=== PATIENT | female | born 1940 | race Caucasian/White ===

== ENCOUNTER 2024-01-07 15:19 | Inpatient (IN) | payer OTHER ==
[~2024-01-07] VITALS: Ht 157.5 cm; Wt 79.1 kg
[2024-01-07] VITALS (10 sets, daily range): BP systolic 101–146; BP diastolic 59–87; PULSE 68–85; RESP 18–22; TEMP 97–98; O2SAT 94–100
[~2024-01-07 15:19] MED LIST: ALEN70TA74 PO
[2024-01-07 15:52] LABS: Basophils # (auto) 0 10 ^3/uL (0-0.2); Basophils % (auto) 0.3 % (0.0-2.0); Eosinophils # (auto) 0 10 ^3/uL (0-0.8); Eosinophils % (auto) 0.3 % (0.0-7.0); Hematocrit 44.5 % (36.0-46.0); Lymphocytes # (auto) 1.6 10 ^3/uL (0.4-5.4); Lymphocytes % (auto) 18.6 % (10.0-50.0); Mean Corpuscular Hemoglobin 30.1 pg (28.0-32.0); Mean Corpuscular Hgb Conc. 33.7 g/dL (32.0-36.0); Mean Corpuscular Volume 89.5 fL (80.0-100.0); Monocytes # (auto) 0.5 10 ^3/uL (0-1.3); Monocytes % (auto) 5.7 % (0.0-12.0); Neutrophils # (auto) 6.5 10 ^3/uL (1.6-8.6); Neutrophils % (auto) 75.1 % (37.0-80.0); Nucleated Red Blood Cells % 0.1 %; Platelet Count (auto) 230 10^3/uL (140-450); Red Blood Cells 4.97 10^6/uL (4.0-5.20); Red Cell Distribution Width 13.5 % (11.8-14.3); White Blood Cell 8.6 10^3/uL (4.4-10.8)
[2024-01-07 16:05] LABS: Alanine Aminotransferase 14 U/L (7-40); Albumin 4.7 g/dL (3.2-4.8); Alkaline Phosphatase 83 U/L (46-116); Anion Gap 10 (5-15); Aspartate Aminotransferase 20 U/L (13-40); BUN/Creatinine Ratio 15.4 (10.0-20.0); Blood Urea Nitrogen 18 mg/dL (9-23); Carbon Dioxide 28 mmol/L (20-31); Chloride 103 mmol/L (98-107); Potassium 4.2 mmol/L (3.5-5.1); Sodium 141 mmol/L (136-145)
[2024-01-07 16:06] LABS: Bilirubin, Total 0.3 mg/dL (0.2-1.0); Calcium 10.7 mg/dL (8.7-10.4); Glucose 162 mg/dL (74-106); Total Protein 7.3 g/dL (5.7-8.2)
[2024-01-07 16:13] LABS: INR 1.03 (0.9-1.15); Partial Thromboplastin Time 26.2 SEC (24.5-34.5); Prothrombin Time 10.9 sec (9.3-11.8)
--- NOTE | 2024-01-07 16:13 | ED.PDOC ---
History of Present Illness HPI Comments 83F presents to the ER w/ no prior Hx associated to the c/c of CP. Pt reports on going outside near her car and slide her back on the car down to the floor, and as the pt was trying to get up she immediately felt CP. Pt reported the CP to have been tight ache, which was substernal and radiated down the bilateral arms, and bilateral jaws. she currently does not have the chest pain. Pt also notes that she had SOB and CHAHAL during the CP. Pt PCP is Doctor Lanier. PMHx of HTN and Diverticulosis. SHx of Hysterectomy. Social Hx of Tobacco use, but denies alcohol and substance use. Denies chills, fever, N/V/D, or other associated symptom's, modifiers, or recent injuries or sick contact at this time. Chief Complaint: Chest Pain Time Seen by MD: 15:30 Primary Care Provider: DAYA Prieto Notes: Nurses Notes, Medications, Allergies Allergies: Coded Allergies: NO KNOWN ALLERGIES (Unverified , 04/07/14) Information Source: Patient Mode of Arrival: Ambulatory Severity: Moderate Timing: Minutes Duration: Since onset, Minutes Prehospital treatment: None Past Medical History PAST MEDICAL HISTORY: HTN Past Medical History (Other): Diverticulosis Surgical History: Hysterectomy CODING COMPLIANCE AUDITOR History: No Pertinent CODING COMPLIANCE AUDITOR History Family History Family History: Reviewed,noncontributory to illness, Unknown Social History Smoker: Cigarettes Alcohol: Denies ETOH Use Drugs: Denies Drug Use Lives In: Home Constitutional: denies: chills, diaphoresis, fatigue, fever, malaise, sweats, weakness, others EENTM: denies: blurred vision, double vision, ear bleeding, ear discharge, ear drainage, ear pain, ear ringing, eye pain, eye redness, hearing loss, mouth pain, mouth swelling, nasal discharge, nose bleeding, nose congestion, nose pain, photophobia, tearing, throat pain, throat swelling, voice changes, others Respiratory: reports: shortness of breath; denies: cough, hemoptysis, orthopnea, SOB at rest, SOB with excertion, stridor, wheezing, others Cardiovascular: reports: chest pain, left arm pain (/RIght arm); denies: dizzy spells, diaphoresis, Dyspnea on exertion, edema, irregular heart beat, lightheadedness, palpitations, PND, syncope, others Gastrointestinal: denies: abdomen distended, abdominal pain, blood streaked bow els, constipated, diarrhea, dysphagia, difficulty swallowing, hematemesis, melena, nausea, poor appetite, poor fluid intake, rectal bleeding, rectal pain, vomiting, others Genitourinary: denies: abnormal vagina bleeding, burning, dyspareunia, dysuria, flank pain, frequency, hematuria, incontinence, pain, , vagina discharge, urgency, others Neurological: reports: headache; denies: dizziness, fainting, left sided numbness, left sided weakness, numbness, paresthesia, pre-existing deficit, right sided numbness, right sided weakness, seizure, speech problems, tingling, tremors, weakness, others Musculoskeletal: denies: back pain, gout, joint pain, joint swelling, muscle pain, muscle stiffness, neck pain, others Integumetry: denies: bruises, change in color, change in hair/nails, dryness, laceration, lesions, lumps, rash, wounds, others Allergic/Immunocompromised: denies: Difficulty Healing, Frequent Infections, Hives, Itching, others Hematologic/Lymphatic: denies: anemia, blood clots, easy bleeding, easy bruising, swollen glands, others Endocrine: denies: excessive hunger, excessive sweating, excessive thirst, excessive urination, flushing, intolerance to cold, intolerance to heat, unexplained weight gain, unexplained weight loss, others Psychiatric: denies: anxiety, bipolar disorder, depression, hopeless, panic di sorder, schizophrenia, sleepless, suicidal, others All Other Systems: Reviewed and Negative Physical Exam General Appearance: No Apparent Distress, Normal HEENT: Normal ENT Inspection, Pharynx Normal, TMs Normal Neck: Full Range of Motion, Non-Tender, Normal, Normal Inspection Respiratory: Chest Non-Tender, Lungs Clear, No Accessory Muscle Use, No Respiratory Distress, Normal Breath Sounds Cardiovascular: No Edema, No JVD, No Murmur, No Gallop, Normal Peripheral Pulses, Regular Rate/Rhythm Breast Exam: Deferred Gastrointestinal: No Organomegaly, Non Tender, No Pulsatile Mass, Normal Bowel Sounds, Soft Genitalia: Deferred Pelvic: Deferred Rectal: Deferred Extremities: No calf tenderness, Normal capillary refill, Normal inspection, Normal range of motion, Non-tender, No pedal edema Musculoskeletal : Apperance: Normal Neurologic: Alert, systems development consultant II-XII nml as Tested, No Motor Deficits, Normal Affect, Normal Mood, No Sensory Deficits Cerebellar Function: Normal Reflexes: Normal Skin: Dry, Normal Color, Warm Lymphatic: No Adenopathy Was a procedure done? Was a procedure done?: No EKG EKG : Pulse Rate (adult): 77 [place]: Normal Cardiac Rhythm: NSR Block: None Hypertrophy: None ST: New, Ant, Lat Comments repeat ekg nsr 77. no dynamic changes. persistent st elevations in lateral leads and st depressions in inf leads, but q waves in inf leads repeat EKG #2- nsr 83, no dynamic changes, with same st changes Differential Dx Considerations may include: STEMI, NSTEMI, aortic dissection, PE, unstable angina,ptx, anxiety X-Ray, Labs, Meds, VS Vital Signs Date Time Temp Pulse Resp B/P (MAP) Pulse Ox O2 Delivery O2 Flow Rate FiO2 01/07/24 16:31 83 01/07/24 16:13 85 01/07/24 16:13 83 20 96 Nasal Cannula* 2 28 01/07/24 16:13 96 Nasal Cannula* 2 28 01/07/24 16:13 98.2 79 20 139/96 (110) 97 98.2 01/07/24 15:38 98.0 84 16 169/93 (118) 94 01/07/24 15:26 77 Lab Test 01/07/24 16:42 01/07/24 15:32 Range/Units Troponin I High Sensitivity Pending 3627 *H </=34 ng/L White Blood Count 8.6 4.4-10.8 10^3/uL Red Blood Count 4.97 4.0-5.20 10^6/uL Hemoglobin 15.0 12.2-16.2 g/dL Hematocrit 44.5 36.0-46.0 % Mean Corpuscular Volume 89.5 80.0-100.0 fL Mean Corpuscular Hemoglobin 30.1 28.0-32.0 pg Mean Corpuscular Hemoglobin Concent 33.7 32.0-36.0 g/dL Red Cell Distribution Width 13.5 11.8-14.3 % Platelet Count 230 140-450 10^3/uL Mean Platelet Volume 8.4 6.9-10.8 fL Neutrophils (%) (Auto) 75.1 37.0-80.0 % Lymphocytes (%) (Auto) 18.6 10.0-50.0 % Monocytes (%) (Auto) 5.7 0.0-12.0 % Eosinophils (%) (Auto) 0.3 0.0-7.0 % Basophils (%) (Auto) 0.3 0.0-2.0 % Neutrophils # (Auto) 6.5 1.6-8.6 10 ^3/uL Lymphocytes # (Auto) 1.6 0.4-5.4 10 ^3/uL Monocytes # (Auto) 0.5 0-1.3 10 ^3/uL Eosinophils # (Auto) 0 0-0.8 10 ^3/uL Basophils # (Auto) 0 0-0.2 10 ^3/uL Nucleated Red Blood Cells 0.1 % Prothrombin Time 10.9 9.3-11.8 sec Prothrombin Time INR 1.03 0.9-1.15 Activated Partial Thromboplast Time 26.2 24.5-34.5 SEC Sodium Level 141 136-145 mmol/L Potassium Level 4.2 3.5-5.1 mmol/L Chloride Level 103 98-107 mmol/L Carbon Dioxide Level 28 20-31 mmol/L Anion Gap 10 5-15 Blood Urea Nitrogen 18 9-23 mg/dL Creatinine 1.17 H 0.550-1.02 mg/dL Glomerular Filtration Rate Calc 46 >90 mL/min BUN/Creatinine Ratio 15.4 10.0-20.0 Serum Glucose 162 H 74-106 mg/dL Hemoglobin A1c Pending Calcium Level 10.7 H 8.7-10.4 mg/dL Magnesium Level Pending Total Bilirubin 0.3 0.2-1.0 mg/dL Aspartate Amino Transferase (AST) 20 13-40 U/L Alanine Aminotransferase (ALT) 14 7-40 U/L Alkaline Phosphatase 83 46-116 U/L B-Type Natriuretic Peptide Pending Total Protein 7.3 5.7-8.2 g/dL Albumin 4.7 3.2-4.8 g/dL Triglycerides Level Pending Cholesterol Level Pending LDL Cholesterol Pending HDL Cholesterol Pending Thyroid Stimulating Hormone (TSH) Pending Current Medications Medications (Trade) Dose Ordered Sig/Franklin Route Start Time Stop Time Status Last Admin Aspirin 325 mg ONCE ONCE PO 01/07/24 15:45 01/07/24 15:46 DC 01/07/24 17:04 Heparin Sodium (Porcine) 3,000 units ONCE ONCE IV 01/07/24 16:45 01/07/24 16:46 DC 01/07/24 17:04 Time of 1ST Reevaluation: 16:00 Reevaluation 1ST: Unchanged Time of 2ND Reevaluation: 16:40 Reevaluation 2ND: Improved Patient Education/Counseling: Diagnosis, Treatment, Prognosis, Need For Follow Up Family Education/Counseling: No Family Present Additional Information - I reviewed the following notes from patient's past medical encounters:04/07/14 - The following tests were ordered, and results were reviewed by me: Labs, X- Ray, EKG, CT, PHA - I reviewed and agreed with the following test results read by other provider: X-ray, CT - I discussed treatments and results with medical personnel and Dr Garcia. 1st ekg was immediately sent to Dr Garcia, who felt this is not a STEMI, and pt has a headache, so needs a head ct. i called Dr Garcia back to inform him that pt has jaw pain Dr Shah was consulted and will admit Departure 1 Departure Time of Disposition: 16:42 Impression: Primary Impression: ACS (acute coronary syndrome) Disposition: 09 ADMITTED INPATIENT Admit to: ICU Condition: Serious Critical Care Note Critical Care Time?: Yes (55 min-critical care time only) Critical care comment: due to the likelihood of patients condition suddenly deteriorating, the care requires my highest level of attention, readiness to intervene. my critical care include assessing and reassessing of patient's condition, response to treatments, ordering the appropriate tests, reviewing the results, ordering of treatments, discussing the care with medical personnel and consultants, and formulating a treatment plan, as well a reviewing various medical records. this include at least 50% face-face interaction, and does not include any procedures Stability Stability form required: No Heart Score Heart Score: Heart Score Response (Comments) Value History Highly Suspicious [address]-Deviation 2 Age >65 2 Risk Factors 1 or 2 risk factors 1 Troponin >3 x's Normal limit 2 Total 9 I personally scribed for IFRAH CANNON MD ([email or web address]) on 01/07/24 at 16:13. Electronically submitted by Ramone Salcido ([email or web address]). IFRAH CANNON MD Jan 07, 2024 16:13
--- NOTE | 2024-01-07 16:19 | DVH ---
CLINICAL INFORMATION: 83 years old, Female; HEADACHE. TECHNIQUE: Axial imaging was obtained through the brain without contrast. Coronal and sagittal refor matted images were obtained, reviewed, and stored. Images were reviewed in brain and bone windows. A ll CT scans at this medical facility are performed using dose modulation techniques as appropriate to a performed exam including the following: Automated exposure control was utilized; adjustment of the MA and/or KV according to patient size; and use of iterative reconstruction technique. CTDIvol = 48.95 mGy DLP = 783.55 mGy-cm COMPARISON: None FINDINGS: There is no acute intracranial hemorrhage or extraaxial fluid collection. No mass effect o r midline shift. Scattered areas of hypoattenuation are seen in the periventricular and subcortical w thierno matter, which are nonspecific but most likely sequelae of small vessel ischemic disease. Small c hronic lacunar infarct in the left thalamus. Likely chronic lacunar infarcts in the basal ganglia mushtaq aterally. The ventricles and sulci are within normal limits in size for age. Basal cisterns are paten t. The calvarium is unremarkable. Paranasal sinuses and mastoid air cells are clear. IMPRESSION: 1. No CT evidence of acute intracranial abnormality. 2. Nonacute appearing findings as described above.
--- NOTE | 2024-01-07 16:25 | DVH ---
XY CHEST TWO VIEWS ROUTINE CLINICAL HISTORY: CP COMPARISON: None TECHNIQUE: Frontal and lateral view of the chest was obtained FINDINGS: Lines and Tubes: None Lungs: No focal consolidation. Diffuse interstitial prominence with minimal left basilar opacity. Pleura: No effusion. No pneumothorax. Cardiomediastinal contours: Unremarkable Bones: No acute osseous abnormality. Severe degenerative changes bilateral AC joints. IMPRESSION: Pulmonary vascular congestion with left basilar atelectasis.
[2024-01-07] MEDS ORDERED: MORPHINE SULFATE INJ 2 MG/ml SYRG IV PRN ×3 (16:45→20:00)
[2024-01-07] MEDS ORDERED: NITROGLYCERIN 0.4 MG SL TAB SL PRN ×3 (16:45→20:00)
--- NOTE | 2024-01-07 16:57 | DVHINCON2 ---
CRIS IDAS [facility] 01/07/24 1657: Date Seen: Jan 07, 2024 Referring Physician MD Abril Reason for Consultation NSTEMI History of Present Illness This is a pleasant 83-year-old female who presented to the emergency room with a chief complaint of generalized weakness. The patient complains of progressive generalized weakness associated with jaw pain , mild shortness of breath, a mild CHAHAL, and some chest discomfort radiating to bilateral upper extremities. At time of assessment, the patient was chest pain free. She underwent multiple 12-lead electrocardiograms revealing progressive ST segment changes to anteroseptal leads as well as reciprocal changes to lateral leads. Initial troponin level is >3600 ng/L. Significant medical history includes tobacco use including a smoke history of 9.6 pack-years, osteoporosis, and hysterectomy. Of note, reports familial history for cardiovascular disease including brother with myocardial infarction. Past Medical History Past medical history reviewed. No other significant than mentioned above. Past Surgical History Hysterectomy Family History Family history reviewed. See HPI. Social History See HPI. Denies use of alcohol or illicit drugs. Allergies: Coded Allergies: NO KNOWN ALLERGIES (Unverified , 04/07/14) Home Meds Home medications reviewed. Current Medications Current Medications Medications (Trade) Dose Ordered Sig/Franklin Route PRN Reason Start Time Stop Time Status Last Admin Nitroglycerin (Ntrostat Sublingual) 0.4 mg Q5MINP PRN SL FOR CHEST PAIN 01/07/24 16:45 UNV Morphine Sulfate 2 mg Q30M PRN IV FOR CHEST PAIN 01/07/24 16:45 UNV Metoprolol Tartrate (Lopressor Tablet) 25 mg BID PO 01/07/24 22:00 UNV Aspirin 81 mg DAILY PO 01/08/24 10:00 UNV Atorvastatin Calcium (Lipitor) 40 mg HS PO 01/07/24 22:00 UNV Review of Systems Constitutional: Generalized weakness Ears, Nose, & Throat: No symptom reported Eyes: No symptom reported Neurological: CHAHAL Pulmonary/Respiratory: SOB Cardiovascular: Chest pain, jaw pain Gastrointestinal: No symptom reported Genitourinary: No symptom reported Musculoskeletal: No symptom reported Skin: No symptom reported Psychiatric: No symptom reported Endocrine: No symptom reported Hemotologic/Lymphatic: No symptom reported Vital Signs Vital Signs Date Time Temp Pulse Resp B/P (MAP) Pulse Ox O2 Delivery O2 Flow Rate FiO2 01/07/24 16:31 83 11/30/24 16:13 98.2 20 139/96 (110) 97 98.2 Physical Exam General Appearance: Cooperative. Elder. This. In no acute distress Head Exam: Normal inspection Neck Exam: Normal inspection. Non-tender. Normal alignment Pulmonary/Respiratory: Chest non-tender. Diminished bilateral breath sounds Cardiovascular/Chest: Regular rate and rhythm. S1, S2. Sinus rhythm with progressive ST segment changes to anteroseptal leads and reciprocal lateral changes. Peripheral Pulses: 2+ Radial (R). 2+ Radial (L). 2+ Pedal (R). 2+ Pedal (L) Abdominal Exam: Normal bowel sounds. Soft. Nontender. No hepatospenomegaly. No masses Ankle Exam: Negative ankle edema Lower extremities: Negative lower extremity edema Neuro/Mental Status: A&O x4. Coherent Thoughts/Psych: Normal thought pattern. Appropriate mood and affect. Good judgement and insight Appearance: In no acute distress Skin Exam: Normal inspection. Normal color. Warm. Dry Labs/Diagnostic Data Labs Test 01/07/24 15:32 Range/Units White Blood Count 8.6 4.4-10.8 10^3/uL Red Blood Count 4.97 4.0-5.20 10^6/uL Hemoglobin 15.0 12.2-16.2 g/dL Hematocrit 44.5 36.0-46.0 % Mean Corpuscular Volume 89.5 80.0-100.0 fL Mean Corpuscular Hemoglobin 30.1 28.0-32.0 pg Mean Corpuscular Hemoglobin Concent 33.7 32.0-36.0 g/dL Red Cell Distribution Width 13.5 11.8-14.3 % Platelet Count 230 140-450 10^3/uL Mean Platelet Volume 8.4 6.9-10.8 fL Neutrophils (%) (Auto) 75.1 37.0-80.0 % Lymphocytes (%) (Auto) 18.6 10.0-50.0 % Monocytes (%) (Auto) 5.7 0.0-12.0 % Eosinophils (%) (Auto) 0.3 0.0-7.0 % Basophils (%) (Auto) 0.3 0.0-2.0 % Neutrophils # (Auto) 6.5 1.6-8.6 10 ^3/uL Lymphocytes # (Auto) 1.6 0.4-5.4 10 ^3/uL Monocytes # (Auto) 0.5 0-1.3 10 ^3/uL Eosinophils # (Auto) 0 0-0.8 10 ^3/uL Basophils # (Auto) 0 0-0.2 10 ^3/uL Nucleated Red Blood Cells 0.1 % Prothrombin Time 10.9 9.3-11.8 sec Prothrombin Time INR 1.03 0.9-1.15 Activated Partial Thromboplast Time 26.2 24.5-34.5 SEC Sodium Level 141 136-145 mmol/L Potassium Level 4.2 3.5-5.1 mmol/L Chloride Level 103 98-107 mmol/L Carbon Dioxide Level 28 20-31 mmol/L Anion Gap 10 5-15 Blood Urea Nitrogen 18 9-23 mg/dL Creatinine 1.17 H 0.550-1.02 mg/dL Glomerular Filtration Rate Calc 46 >90 mL/min BUN/Creatinine Ratio 15.4 10.0-20.0 Serum Glucose 162 H 74-106 mg/dL Calcium Level 10.7 H 8.7-10.4 mg/dL Total Bilirubin 0.3 0.2-1.0 mg/dL Aspartate Amino Transferase (AST) 20 13-40 U/L Alanine Aminotransferase (ALT) 14 7-40 U/L Alkaline Phosphatase 83 46-116 U/L Troponin I High Sensitivity 3627 *H </=34 ng/L Total Protein 7.3 5.7-8.2 g/dL Albumin 4.7 3.2-4.8 g/dL Assessment Acute non ST-elevation myocardial infarction Rule out structural heart disease Pertinent family history for cardiovascular disease Nicotine dependence Obesity Plan/Recommendation (Dr. Stapleton) Scheduled for urgent cardiac catheterization and coronary angiogram at fist available with Dr. Stapleton. All risks and benefits of the procedure were discussed with the patient who agrees to proceed with intervention. All questions answered. In the meantime, initiate heparin loading dose. The patient was administered ASA 325 mg upon arrival. Trend troponin levels closely. Monitor ECG changes and notify. We will institute further cardiac evaluation with a transthoracic echocardiogram to rule out structural heart disease. Thank you for allowing us to participate in this patient's care. Ple ase call if you have any questions or concerns. Critical care time: 40 min. This medical document was created using an electronic medical record system with voice recognition software and computerized dictation system. Although this document has been carefully reviewed, there might still be some phonetic and typographical errors. Occasional wrong-word or ``sound-alike substitutions may have occurred due to the inherent limitations of voice recognition software. These areas are purely typographical due to imperfections of the software programs and do not reflect any compromise in the patient's medical care. Please read the chart carefully and recognize, using context, where these substitutions have occurred. Plan discussed with: Patient, Other Date of Service: Jan 07, 2024 Billing Provider: CRIS DIAS Cardiology Common Codes: 77397-[id number] CARE 30-74 MIN ANNA STAPLETNO MD 01/07/24 5076: Allergies: Coded Allergies: NO KNOWN ALLERGIES (Unverified , 04/07/14) Plan/Recommendation pt with nstemi, ?aneurysmal dilatation on ecg, stat echo shows severe chf likely has severe cad recommend [facility] very high risk pt for cv complications given age and acuity of condition Plan discussed with: Other (rn) CRIS DIAS Jan 07, 2024 16:57 ANNA STAPLETON MD Jan 07, 2024 18:36
[2024-01-07] MEDS: ASPirin 325 MG TAB PO ONE (17:04)
[2024-01-07] MEDS: HEPARIN SODIUM (PORCINE) 5000 UNITS/ML 1ML VIAL IV ONE (17:04)
[2024-01-07] MEDS ORDERED: HEPARIN SODIUM (PORCINE) 5000 UNITS/ML 1ML VIAL IV ONE (17:30)
[2024-01-07] MEDS ORDERED: HEPARIN DRIP/D5W 100UNITS/ML 250 ML IV SCH (17:30)
[2024-01-07 17:53] LABS: Magnesium 1.8 mg/dL (1.6-2.6)
--- NOTE | 2024-01-07 18:15 | DVHSR ---
APPROVED REPORT EXAM: LIMITED Two-dimensional and M-mode echocardiogram with Doppler and color Doppler. Blood Pressure: 139/96 mmHg INDICATION NSTEMI RISK FACTORS Height: 5'2", Weight: 158 DIMENSIONS LVDd (3.8-5.7cm)LA (2D)3.5 (1.9-4.0cm)Aortic Root (2.0-3.7cm) EF (%) 25.0 (55-70%)Rt. Atrium3.3 (1.9-4.0cm)Asc. Aorta cm Mitral Valve MitralMitral Stenosis E wave0.75m/sMV Mean GR.mmHg A wave0.94m/sMV Peak GR.mmHg E/A ratio0.82D MVAcm2 DECEL [id number] 1/2 Timems Aortic Valve Aortic ValveAortic Stenosis V11.15m/Calli Mean GR.3mmHg V21.22m/Calli Peak GR.6mmHg LVOT Diameter1.8 (1.8-2.4cm)Doppler AVA2.40cm2 Tricuspid Valve TR Velocity3.15m/s [id number] Other Information Quality : Technically LimitedRhythm : Technically limited study due to body habitus and patient position. Conclusion lvef 30% akinetic apex with anerusymal dilatation mild RV dysfunction left atrium enlaged
[2024-01-07] MEDS: IODIXANOL 320MG/ML 100ML BTL IV ONE (18:21)
[2024-01-07 18:35] LABS: Urine Bacteria FEW /hpf (None Seen); Urine Blood Negative /uL (Negative); Urine Clarity Turbid (Clear); Urine Color Light-Yellow (Yellow); Urine Protein, UAD 2+ (Negative); Urine Specific Gravity 1.024 (1.001-1.035); Urine Urobilinogen Normal (Negative); Urine WBC 16 /hpf (0 - 5)
[2024-01-07] MEDS: ANGIOMAX 250 MG VIAL IV ONE (18:57)
[2024-01-07] MEDS: MIDAZOLAM HCL 2MG/2ML 2ml VIAL (1mg/ml) ONE (18:57)
[2024-01-07] MEDS: SODIUM CHL 0.9% 0 ML ONE (18:57)
[2024-01-07] MEDS: VERAPAMIL 2.5MG/ML INJ 2ML VIAL IV ONE (18:57)
[2024-01-07] MEDS: LIDOCAINE 2%HCL (LOCAL ANESTH.) INJ 20ML MDV ONE (18:57)
[2024-01-07] MEDS: fentaNYL CITRATE 100 MCG/2 ML VL ONE (18:57)
--- NOTE | 2024-01-07 19:35 | DVHOP2 ---
Operative Report Operative Report CARDIAC [facility] PROCEDURE REPORT [place], [place] Date of Service: 01/07/24 Component Lab Tech: Anna Stapleton MD PROCEDURES PERFORMED: Coronary angiogram, left heart catheterization, conscious sedation administration and supervision, less than 15 minutes; fluoroscopy use and interpretation. PREOPERATIVE DIAGNOSES: nstemi, acute chf, stat case POSTOP DIAGNOSIS: same DESCRIPTION OF PROCEDURE: The patient or appropriate family signed informed consent understanding the risks, benefits and alternatives of the procedure, they wished to proceed. The patient was brought to the cardiac medical laboratory technologist in n.p.o. state. The patient was prepped in a sterile fashion. Sedation was used per cardiac cath protocol. I administered 2 mL of 2% lidocaine to the right wrist. With an antegrade front wall puncture. I cannulated the right radial artery and placed a 6-Swiss Glidesheath slender. Next, an intra-arterial spasmolytic was administered. Next, a - 5 Swiss Mer[place] catheter and were used for coronary angiogram and LVEDP measurement and pressure pullback. At the completion of procedure, all guides and wires were removed, and there were no immediate complications. 2000 U of iv heparin given. FINDINGS: RCA: Moderate vessel off the right sinus of Valsalva, there is no severe flow limiting stenosis. mild 30% mid vessel stenosis LEFT MAIN: Moderate size left main, it bifurcates into LAD and circumflex. no severe stenosis CIRCUMFLEX: Moderate caliber vessel coming off the left main with no flow limiting stenosis. LAD: LAD is a moderate caliber vessel coming of the left main. no severe stenosis LVEDP of 24 mmhg CONCLUSIONS: 1. no severe epicardial cad 2. marked LVEDP elevation, acute HF PLAN: Aggressive risk factor modification and medical management for the patient. asa iv lasix 40 mg given start HF therapy ANNA STAPLETON MD Jan 07, 2024 19:35
[2024-01-07] MEDS: FUROSEMIDE 20 MG/2 ML VIAL ONE (19:41)
[2024-01-07] MEDS: HEPARIN SODIUM (PORCINE) 5000 UNITS/ML 1ML VIAL ONE (19:41)
[2024-01-07] MEDS: ATORVASTATIN 20 MG TAB PO SCH (22:38)
[2024-01-07] MEDS: ACETAMINOPHEN 325 MG TAB PO PRN (22:41)
[2024-01-07] MEDS: METOPROLOL TARTRATE 25 MG TAB PO SCH (22:43)
[2024-01-08] VITALS (8 sets, daily range): BP systolic 113–132; BP diastolic 46–70; PULSE 58–81; RESP 13–18; TEMP 97.7–98.2; O2SAT 96–99
--- NOTE | 2024-01-08 00:21 | DVHHP2 ---
Admitting Diagnosis: Chest pain, UTI History of Present Illness History Source: Patient Exam Limitations: No limitations HPI Mrs. Zofia Noyola is an 83 yo female with a history of hypertension who presented with midsternal chest pain radiating to bilateral arms. Patient with troponin levels of 3,627 and 8,525. Patient was evaluated by Cardiology and taken to computer lab assistant for cardiac angiogram. Patient admitted post heart cath procedure. Patient currently denies any chest pain, dyspnea, nausea, vomiting, dysuria, hematuria. Past Medical History Cardiac: HTN Pulmonary: No pertinent Hx Central Nervous System: No pertinent Hx GI: No pertinent Hx Hemotology/Oncology: No pertinent Hx Hepatobiliary: No pertinent Hx Psychiatric: No pertinent Hx Musculoskeletal: No pertinent Hx Rheumotologic: No pertinent Hx Infectious Disease: No peritnent Hx ENT: No pertinent Hx Renal/: No pertinent Hx Endocrine: No pertinent Hx Dermatology: No pertinent Hx Patient Family History: Cardiovascular disease G8 BROTHER Smoker: No Hx (Negative) Alocohol: None Drugs: None Domestic Violence: Neg Review of Systems Constitutional: No symptom reported Ears, Nose, & Throat: No symptom reported Eyes: No symptom reported Pulmonary/Respiratory: No symptom reported Cardiovascular: No symptom reported Gastrointestinal: No symptom reported Genitourinary: No symptom reported Musculoskeletal: No symptom reported Skin: No symptom reported Psychiatric: No symptom reported Endocrine: No symptom reported Hemotologic/Lymphatic: No symptom reported H&P Exam Vital Signs Vital Signs Date Time Temp Pulse Resp B/P (MAP) Pulse Ox O2 Delivery O2 Flow Rate FiO2 01/07/24 22:43 67 146/75 01/07/24 21:00 22 97 01/07/24 19:30 97.0 97.0 01/07/24 16:13 Nasal Cannula* 2 28 General Appeara: Well developed, Well nourished, Normal Appearance Head Exam: Normal inspection Neck Exam: Normal inspection, Non-tender, Normal alignment Eye Exam: bilateral eye Normal inspection, bilateral eye PERRL, bilateral eye EOMI Ear Exam: bilateral ear Auricle normal Nasal Exam: Normal inspection Mouth: Normal Inspection Pulmonary/Respiratory: Normal inspection, Normal breath sounds, Chest non- tender, Lungs clear Cardiovascular/Chest: Normal inspection, Regular rate, Normal Rhythm Peripheral Pulses: 2+ dorsalis pedis (R), 2+ dorsalis pedis (L), 2+ Radial (R), 2+ Radial (L) Abdominal Exam: Normal bowel sounds, Soft, No tenderness Rectal Exam: Deferred Legs: bilateral leg non-tender, bilateral leg normal inspection 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: Normal hearing, Normal speech, PERRL Neuro/Mental St: Alert, Oriented Appearance: Appropriate appearance, Appropriate insight, Memory impairment Eye contact/ Speech: Cooperative, Good eye contact, Normal speech Thoughts/Psych: Normal thought pattern Skin Exam: Normal inspection, Normal color, Warm/dry Labs/Xrays Labs Test 01/07/24 18:23 01/07/24 16:42 01/07/24 15:32 Range/Units Urine Color Light-yellow Yellow Urine Clarity Turbid H Clear Urine pH 6.0 5.0-9.0 Urine Specific [place] 1.024 1.001-1.035 Urine Protein 2+ H Negative Urine Ketones 1+ H Negative Urine Blood Negative Negative /uL Urine Nitrite 2+ H Negative Urine Bilirubin Negative Negative Urine Urobilinogen Normal Negative mg/dL Urine Leukocyte Esterase Trace Negative /uL Urine RBC 2 0 - 4 /hpf Urine WBC 16 0 - 5 /hpf Urine Squamous Epithelial Cells Few <5 /hpf Urine Bacteria Few H None Seen /hpf Urine Glucose Normal Normal mg/dL Troponin I High Sensitivity 8525 *H </=34 ng/L White Blood Count 8.6 4.4-10.8 10^3/uL Red Blood Count 4.97 4.0-5.20 10^6/uL Hemoglobin 15.0 12.2-16.2 g/dL Hematocrit 44.5 36.0-46.0 % Mean Corpuscular Volume 89.5 80.0-100.0 fL Mean Corpuscular Hemoglobin 30.1 28.0-32.0 pg Mean Corpuscular Hemoglobin Concent 33.7 32.0-36.0 g/dL Red Cell Distribution Width 13.5 11.8-14.3 % Platelet Count 230 140-450 10^3/uL Mean Platelet Volume 8.4 6.9-10.8 fL Neutrophils (%) (Auto) 75.1 37.0-80.0 % Lymphocytes (%) (Auto) 18.6 10.0-50.0 % Monocytes (%) (Auto) 5.7 0.0-12.0 % Eosinophils (%) (Auto) 0.3 0.0-7.0 % Basophils (%) (Auto) 0.3 0.0-2.0 % Neutrophils # (Auto) 6.5 1.6-8.6 10 ^3/uL Lymphocytes # (Auto) 1.6 0.4-5.4 10 ^3/uL Monocytes # (Auto) 0.5 0-1.3 10 ^3/uL Eosinophils # (Auto) 0 0-0.8 10 ^3/uL Basophils # (Auto) 0 0-0.2 10 ^3/uL Nucleated Red Blood Cells 0.1 % Prothrombin Time 10.9 9.3-11.8 sec Prothrombin Time INR 1.03 0.9-1.15 Activated Partial Thromboplast Time 26.2 24.5-34.5 SEC Sodium Level 141 136-145 mmol/L Potassium Level 4.2 3.5-5.1 mmol/L Chloride Level 103 98-107 mmol/L Carbon Dioxide Level 28 20-31 mmol/L Anion Gap 10 5-15 Blood Urea Nitrogen 18 9-23 mg/dL Creatinine 1.17 H 0.550-1.02 mg/dL Glomerular Filtration Rate Calc 46 >90 mL/min BUN/Creatinine Ratio 15.4 10.0-20.0 Serum Glucose 162 H 74-106 mg/dL Hemoglobin A1c 6.5 H <5.7 % A1C Calcium Level 10.7 H 8.7-10.4 mg/dL Magnesium Level 1.8 1.6-2.6 mg/dL Total Bilirubin 0.3 0.2-1.0 mg/dL Aspartate Amino Transferase (AST) 20 13-40 U/L Alanine Aminotransferase (ALT) 14 7-40 U/L Alkaline Phosphatase 83 46-116 U/L B-Type Natriuretic Peptide 149.20 0-100 pg/mL Total Protein 7.3 5.7-8.2 g/dL Albumin 4.7 3.2-4.8 g/dL Triglycerides Level 295 H < 150 mg/dL Cholesterol Level 160 < 200 mg/dL LDL Cholesterol 59 < 100 mg/dL HDL Cholesterol 67 H 40-59 mg/dL Thyroid Stimulating Hormone (TSH) 1.50 0.55-4.78 uIU/mL Assessment/Plan Problem List: (1) Chest pain (2) ACS (acute coronary syndrome) Plan 83 yo female with known history of hypertension presents with chest pain. Patient was found to have elevated troponin levels. Taken to computer lab assistant post procedure findings RCA: Moderate vessel off the right sinus of Valsalva, there is no severe flow limiting stenosis. mild 30% mid vessel stenosis LEFT MAIN: Moderate size left main, it bifurcates into LAD and circumflex. no severe stenosis CIRCUMFLEX: Moderate caliber vessel coming off the left main with no flow limiting stenosis. LAD: LAD is a moderate caliber vessel coming of the left main. no severe stenosis LVEDP of 24 mmhg 1. NSTEMI 2. Hypertension 3. Acute HF 4. Urinary tract infection Admit telemetry unit post cardiac cath Cardiology consultation, ASA, Statin IV Furosemide Cardiac diet Fluid Restriction/strict I&O's IV antibiotic Ceftriaxone urine culture Discussed all above with patient who verbalizes agreement and understanding of care plan. All questions were answered. Discussed assessment and care plan with admitting and supervising MD. Plan discussed with: Patient, Other Code Visit Code Visit Total Time (mins): 45 Additional Comments Additional Comments Additional Comments Patient's chart is reviewed. Patient is seen evaluated and admitted by nurse practitioner clock smith. Patient is seen and evaluated by me this afternoon. I agree with the nurse practitioner's evaluation, documentation, assessment and care plan as outlined. RAZA ELLIS Jan 08, 2024 00:21 JERO ROWE MD Jan 08, 2024 17:21
[2024-01-08 00:57] LABS: INR 1.03 (0.9-1.15); Partial Thromboplastin Time 27.1 SEC (24.5-34.5); Prothrombin Time 10.9 sec (9.3-11.8)
[2024-01-08] MEDS: ONDANSETRON HCL 4 MG/2 ML VIAL IV PRN (01:50)
--- NOTE | 2024-01-08 06:11 | ECG ---
[facility] Test Date: 2024-01-07 Test Time: 16:31:20 Pat Name: WILMAN ANTON Department: ER Room: 0247T B Gender: F Corporate Director Of Human Resources: ERICK : 1940 Requested By: NELLY CASTRO Order Number: [id number] Reading MD: Harsh Allen Measurements Intervals [place] Rate: 83 P: 75 TX: 152 QRS: 68 QRSD: 95 T: 39 QT: 394 QTc: 463 Interpretive Statements Sinus rhythm Biatrial enlargement Probable anterolateral infarct, acute Electronically Signed On 01-11-2024 16:09:42 PST by Harsh Allen Please click the below link to view image of tracing.
[2024-01-08 06:27] LABS: Basophils # (auto) 0 10 ^3/uL (0-0.2); Basophils % (auto) 0.3 % (0.0-2.0); Eosinophils # (auto) 0 10 ^3/uL (0-0.8); Eosinophils % (auto) 0.1 % (0.0-7.0); Hematocrit 42.4 % (36.0-46.0); Hemoglobin 13.9 g/dL (12.2-16.2); Lymphocytes # (auto) 1.5 10 ^3/uL (0.4-5.4); Lymphocytes % (auto) 12.4 % (10.0-50.0); Mean Corpuscular Hemoglobin 29.7 pg (28.0-32.0); Mean Corpuscular Hgb Conc. 32.8 g/dL (32.0-36.0); Mean Corpuscular Volume 90.3 fL (80.0-100.0); Monocytes # (auto) 0.7 10 ^3/uL (0-1.3); Monocytes % (auto) 5.9 % (0.0-12.0); Neutrophils # (auto) 9.7 10 ^3/uL (1.6-8.6); Neutrophils % (auto) 81.3 % (37.0-80.0); Platelet Count (auto) 196 10^3/uL (140-450); Red Blood Cells 4.69 10^6/uL (4.0-5.20); Red Cell Distribution Width 13.8 % (11.8-14.3); White Blood Cell 11.9 10^3/uL (4.4-10.8)
--- NOTE | 2024-01-08 09:04 | DVHPN2 ---
Progress Note Date Seen: Jan 08, 2024 Medical Necessity Reason Pt with a Central, PICC or Fol: No Subjective Patient reports: Feels better Objective vital signs Vital Sign Date Time Temp Pulse Resp B/P (MAP) Pulse Ox O2 Delivery O2 Flow Rate FiO2 01/08/24 05:00 97.7 65 18 132/70 (90) 96 97.7 01/07/24 22:38 Nasal Cannula* 2 28 Total Intake and Output 01/07/24 01/07/24 01/08/24 15:00 23:00 07:00 Intake Total 400 ml Output Total 1450 ml Balance -1050 ml medications Current Medications Medications Dose Ordered Sig/[place] Route Start Time Stop Time Status Last Admin Dose Admin Metoprolol Tartrate 25 mg BID PO 01/07/24 22:00 01/07/24 22:43 25 MG Aspirin 81 mg DAILY PO 01/08/24 10:00 Atorvastatin Calcium 40 mg HS PO 01/07/24 22:00 01/07/24 22:38 40 MG Nitroglycerin 0.4 mg Q5MINP PRN SL 01/07/24 20:00 Morphine Sulfate 2 mg Q30M PRN IV 01/07/24 20:00 Furosemide 20 mg BID IV 01/08/24 10:00 Potassium Chloride 10 meq BID PO 01/08/24 10:00 Ondansetron HCl 4 mg Q4HPRN PRN IV 01/07/24 20:00 01/08/24 01:50 4 MG Acetaminophen 650 mg Q4HP PRN PO 01/07/24 20:00 01/08/24 03:13 650 MG Ceftriaxone Sodium 50 ml @ 100 mls/hr Q24H IV 01/08/24 06:30 Examination: GENERAL:Abnormal, HEENT:Abnormal, LUNGS:Abnormal, CVS:Abnormal, ABDOMEN:Abnormal laboratory and microbiology Laboratory Tests 01/08/24 06:06 01/07/24 15:32 Test 01/07/24 15:32 Range/Units Serum Glucose 162 H 74-106 mg/dL Microbiology Date/Time Source Procedure Growth Status 01/07/24 18:24 Urine - Mix Port Urine Culture - Preliminary Resulted Problem List/Assessment/Plan Problem List/Assessment/Plan acute systolic HF ckd htn nstemi tobacco copd iv lasix start HF therapy with BB add entresto , jardiance negative [facility] copd management Plan discussed with: Patient My Orders My Orders Orders - ANNA STAPLETON MD Procedure Category Date Status Time Admit ADMIT 01/07/24 Transmitted 19:35 Oxygen By Nasal RT 01/07/24 Transmitted Cannula 19:35 Post Cath Vital Signs BRADLEY 01/07/24 In Process Q 15min 19:37 Post Cath Activity BRADLEY 01/07/24 In Process Protocol 19:37 Date of Service: Jan 08, 2024 Billing Provider: ANNA STAPLETON MD Common Visit Codes: NOT BILLABLE ANNA STAPLETON MD Jan 08, 2024 09:04
[2024-01-08] MEDS ORDERED: MAGNESIUM CITRATE SOLUTION 300 ML BTL PO ONE (09:15)
[2024-01-08] MEDS: cefTRIAXone 1GM/50ML D5W 50 ML IV SCH (09:28)
[2024-01-08] MEDS: ASPirin 81 mg TAB PO SCH (09:31)
[2024-01-08] MEDS: FUROSEMIDE 20 MG/2 ML VIAL IV SCH (09:31)
[2024-01-08] MEDS: POTASSIUM CHL 10 Meq TABLET PO SCH (09:32)
[2024-01-08] MEDS: EMPAGLIFLOZIN 10 MG TAB PO SCH (09:46)
[2024-01-08] MEDS: SACUBITRIL-VALSARTAN 24mg/26mg TAB PO SCH (09:46)
[2024-01-09] VITALS (9 sets, daily range): BP systolic 77–110; BP diastolic 24–53; PULSE 51–74; RESP 12–18; TEMP 97.9–98.9; O2SAT 94–100
[2024-01-09 08:40] LABS: Alanine Aminotransferase 13 U/L (7-40); Albumin 3.9 g/dL (3.2-4.8); Alkaline Phosphatase 58 U/L (46-116); Anion Gap 7 (5-15); Aspartate Aminotransferase 35 U/L (13-40); BUN/Creatinine Ratio 23.2 (10.0-20.0); Calcium 9.7 mg/dL (8.7-10.4); Carbon Dioxide 29 mmol/L (20-31); Chloride 103 mmol/L (98-107); Potassium 4.2 mmol/L (3.5-5.1); Sodium 139 mmol/L (136-145)
[2024-01-09 08:41] LABS: Bilirubin, Total 0.3 mg/dL (0.2-1.0); Total Protein 6.2 g/dL (5.7-8.2)
[2024-01-09 08:53] LABS: Blood Urea Nitrogen 26 mg/dL (9-23); Glucose 133 mg/dL (74-106)
--- NOTE | 2024-01-09 09:48 | ECG ---
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
[2024-01-09] MEDS ORDERED: EMPA1TAB PO (11:48)
[2024-01-09] MEDS ORDERED: RAMI2.5C33 PO (11:48)
[2024-01-09] MEDS ORDERED: METO25TA36 PO (11:48)
--- NOTE | 2024-01-09 11:50 | DVHDS2 ---
Discharge Summary Date of Admission Jan 07, 2024 at 19:35 Date of Discharge: Jan 09, 2024 Labs/Diagnostic Data: Laboratory Results Test 01/09/24 07:16 01/08/24 06:06 01/08/24 00:24 01/07/24 18:23 Sodium Level 139 mmol/L (136-145) Potassium Level 4.2 mmol/L (3.5-5.1) Chloride Level 103 mmol/L (98-107) Carbon Dioxide Level 29 mmol/L (20-31) Anion Gap 7 (5-15) Blood Urea Nitrogen 26 mg/dL (9-23) Creatinine 1.12 mg/dL (0.550-1.02) Glomerular Filtration Rate Calc 49 mL/min (>90) BUN/Creatinine Ratio 23.2 (10.0-20.0) Serum Glucose 133 mg/dL (74-106) Calcium Level 9.7 mg/dL (8.7-10.4) Total Bilirubin 0.3 mg/dL (0.2-1.0) Aspartate Amino Transferase (AST) 35 U/L (13-40) Alanine Aminotransferase (ALT) 13 U/L (7-40) Alkaline Phosphatase 58 U/L (46-116) Total Protein 6.2 g/dL (5.7-8.2) Albumin 3.9 g/dL (3.2-4.8) White Blood Count 11.9 10^3/uL (4.4-10.8) Red Blood Count 4.69 10^6/uL (4.0-5.20) Hemoglobin 13.9 g/dL (12.2-16.2) Hematocrit 42.4 % (36.0-46.0) Mean Corpuscular Volume 90.3 fL (80.0-100.0) Mean Corpuscular Hemoglobin 29.7 pg (28.0-32.0) Mean Corpuscular Hemoglobin Concent 32.8 g/dL (32.0-36.0) Red Cell Distribution Width 13.8 % (11.8-14.3) Platelet Count 196 10^3/uL (140-450) Mean Platelet Volume 8.6 fL (6.9-10.8) Neutrophils (%) (Auto) 81.3 % (37.0-80.0) Lymphocytes (%) (Auto) 12.4 % (10.0-50.0) Monocytes (%) (Auto) 5.9 % (0.0-12.0) Eosinophils (%) (Auto) 0.1 % (0.0-7.0) Basophils (%) (Auto) 0.3 % (0.0-2.0) Neutrophils # (Auto) 9.7 10 ^3/uL (1.6-8.6) Lymphocytes # (Auto) 1.5 10 ^3/uL (0.4-5.4) Monocytes # (Auto) 0.7 10 ^3/uL (0-1.3) Eosinophils # (Auto) 0 10 ^3/uL (0-0.8) Basophils # (Auto) 0 10 ^3/uL (0-0.2) Nucleated Red Blood Cells 0.0 % Prothrombin Time 10.9 sec (9.3-11.8) Prothrombin Time INR 1.03 (0.9-1.15) Activated Partial Thromboplast Time 27.1 SEC (24.5-34.5) Urine Color Light-yellow (Yellow) Urine Clarity Turbid (Clear) Urine pH 6.0 (5.0-9.0) Urine Specific [place] 1.024 (1.001-1.035) Urine Protein 2+ (Negative) Urine Ketones 1+ (Negative) Urine Blood Negative /uL (Negative) Urine Nitrite 2+ (Negative) Urine Bilirubin Negative (Negative) Urine Urobilinogen Normal mg/dL (Negative) Urine Leukocyte Esterase Trace /uL (Negative) Urine RBC 2 /hpf (0 - 4) Urine WBC 16 /hpf (0 - 5) Urine Squamous Epithelial Cells Few /hpf (<5) Urine Bacteria Few /hpf (None Seen) Urine Glucose Normal mg/dL (Normal) Test 01/07/24 16:42 01/07/24 15:32 Troponin I High Sensitivity 8525 ng/L (</=34) Hemoglobin A1c 6.5 % A1C (<5.7) Magnesium Level 1.8 mg/dL (1.6-2.6) B-Type Natriuretic Peptide 149.20 pg/mL (0-100) Triglycerides Level 295 mg/dL (< 150) Cholesterol Level 160 mg/dL (< 200) LDL Cholesterol 59 mg/dL (< 100) HDL Cholesterol 67 mg/dL (40-59) Thyroid Stimulating Hormone (TSH) 1.50 uIU/mL (0.55-4.78) Other Laboratory Tests 01/09/24 07:16 01/08/24 06:06 Final Diagnosis/Problems List non stemi s/p normal angiogram, cardiomyopathy Discharge Disposition: Home Discharge Instruct/Medications Diet: Consistent carbohydrate, Cardiac 2g Na,low cholest Activity: No Restrictions, As Tolerated Follow Up/Referral: cardiology after 2 weeks Medications: as prescribed and home meds Discharge Statement: "Patient was advised to return to the ER or call 911 if any headaches, dizziness, shortness of breath, chest pain, abdominal pain, bleeding, fevers, or worsening of medical condition. Patient was counseled about treatment plan, medications, possible side effects, patientverbalized understanding. All questions were answered to the best of my ability. This discharge took greater then 30 minutes in planning, reviewing documentation, counseling the patient, and discussing with other team members." ASSESSMENT ASSESSMENT Assessment non stemi s/p normal angiogram, cardiomyopathy JERO ROWE MD Jan 09, 2024 11:50
--- NOTE | 2024-01-09 12:31 | ECG ---
[facility] Test Date: 2024-01-07 Test Time: 15:26:24 Pat Name: WILMAN ANTON Department: ER Room: 0247T B Gender: F Manager Of Marketing: CHON : 1940 Requested By: NELLY CASTRO Order Number: [id number] Reading MD: Harsh Allen Measurements Intervals [place] Rate: 77 P: 85 NM: 159 QRS: 91 QRSD: 90 T: 32 QT: 420 QTc: 476 Interpretive Statements Sinus rhythm Ventricular premature complex Right atrial enlargement Anterolateral infarct, acute (LAD) Electronically Signed On 01-11-2024 16:09:39 PST by Harsh Allen Please click the below link to view image of tracing.
[2024-01-10] VITALS (8 sets, daily range): BP systolic 102–147; BP diastolic 41–84; PULSE 55–84; RESP 17–19; TEMP 97.5–98.7; O2SAT 93–100
[2024-01-10 06:40] LABS: Chloride 104 mmol/L (98-107); Potassium 4.6 mmol/L (3.5-5.1); Sodium 139 mmol/L (136-145)
[2024-01-10 06:41] LABS: Anion Gap 9 (5-15); Calcium 9.5 mg/dL (8.7-10.4); Carbon Dioxide 26 mmol/L (20-31)
[2024-01-10 06:46] LABS: BUN/Creatinine Ratio 29.8 (10.0-20.0); Blood Urea Nitrogen 31 mg/dL (9-23); Glucose 122 mg/dL (74-106)
--- NOTE | 2024-01-10 10:25 | DVHINCON2 ---
Date of service: Jan 10, [address] Shah Reason for Consultation lopez catheter malfunction History of Present Illness History Source: Patient, RN Notes, MD Notes Exam Limitations: No limitations HPI 83 yo female s/p angiogram. history of incontinence and bladder prolapse. She manages with pessary changed every 3 months. A lopez was placed for cardiac procedure and RN was unable to deflate balloon for removal. I was wable to deflate and remove without issue. Home Meds Active Scripts Empagliflozin (Jardiance) 10 Mg Tab, 10 MG PO DAILY, #60 TAB Prov:JERO ROWE MD 01/09/24 Ramipril (Ramipril) 2.5 Mg Cap, 1 CAP PO DAILY, #90 CAP 1 Refill Prov:JERO ROWE MD 01/09/24 Metoprolol Succinate (Toprol Xl) 25 Mg Tab, 0.5 TAB PO DAILY, #90 TAB 1 Refill take half a tablet (12.5mg) daily Prov:JERO ROWE MD 01/09/24 Reported Medications Alendronate Sodium (Alendronate Sodium) 70 Mg Tab, 1 TAB PO QWEEKLY for 90 Days, #12 01/09/24 Past Medical History Patient Family History: Cardiovascular disease G8 BROTHER Review of Systems Constitutional: No symptom reported Ears, Nose, & Throat: No symptom reported Eyes: No symptom reported Pulmonary/Respiratory: No symptom reported Cardiovascular: No symptom reported Gastrointestinal: No symptom reported Genitourinary: No symptom reported Musculoskeletal: No symptom reported Skin: No symptom reported Psychiatric: No symptom reported Endocrine: No symptom reported Hemotologic/Lymphatic: No symptom reported H&P Exam Vital Signs Vital Signs Date Time Temp Pulse Resp B/P (MAP) Pulse Ox O2 Delivery O2 Flow Rate FiO2 01/10/24 09:59 64 128/62 01/10/24 08:21 Nasal Cannula* 2 28 01/10/24 05:00 98.7 17 100 98.7 General Appeara: Well developed, Well nourished, Normal Appearance Neuro/Mental St: Alert, Oriented Appearance: Appropriate appearance, Appropriate insight Eye contact/ Speech: Cooperative, Good eye contact, Normal speech Skin Exam: Normal inspection, Normal color, Warm/dry Labs/Xrays Labs Test 01/10/24 04:45 01/09/24 07:16 01/08/24 06:06 01/08/24 00:24 Range/Units Sodium Level 139 136-145 mmol/L Potassium Level 4.6 3.5-5.1 mmol/L Chloride Level 104 98-107 mmol/L Carbon Dioxide Level 26 20-31 mmol/L Anion Gap 9 5-15 Blood Urea Nitrogen 31 H 9-23 mg/dL Creatinine 1.04 H 0.550-1.02 mg/dL Glomerular Filtration Rate Calc 53 >90 mL/min BUN/Creatinine Ratio 29.8 H 10.0-20.0 Serum Glucose 122 H 74-106 mg/dL Calcium Level 9.5 8.7-10.4 mg/dL Total Bilirubin 0.3 0.2-1.0 mg/dL Aspartate Amino Transferase (AST) 35 13-40 U/L Alanine Aminotransferase (ALT) 13 7-40 U/L Alkaline Phosphatase 58 46-116 U/L Total Protein 6.2 5.7-8.2 g/dL Albumin 3.9 3.2-4.8 g/dL White Blood Count 11.9 #H 4.4-10.8 10^3/uL Red Blood Count 4.69 4.0-5.20 10^6/uL Hemoglobin 13.9 12.2-16.2 g/dL Hematocrit 42.4 36.0-46.0 % Mean Corpuscular Volume 90.3 80.0-100.0 fL Mean Corpuscular Hemoglobin 29.7 28.0-32.0 pg Mean Corpuscular Hemoglobin Concent 32.8 32.0-36.0 g/dL Red Cell Distribution Width 13.8 11.8-14.3 % Platelet Count 196 140-450 10^3/uL Mean Platelet Volume 8.6 6.9-10.8 fL Neutrophils (%) (Auto) 81.3 H 37.0-80.0 % Lymphocytes (%) (Auto) 12.4 10.0-50.0 % Monocytes (%) (Auto) 5.9 0.0-12.0 % Eosinophils (%) (Auto) 0.1 0.0-7.0 % Basophils (%) (Auto) 0.3 0.0-2.0 % Neutrophils # (Auto) 9.7 H 1.6-8.6 10 ^3/uL Lymphocytes # (Auto) 1.5 0.4-5.4 10 ^3/uL Monocytes # (Auto) 0.7 0-1.3 10 ^3/uL Eosinophils # (Auto) 0 0-0.8 10 ^3/uL Basophils # (Auto) 0 0-0.2 10 ^3/uL Nucleated Red Blood Cells 0.0 % Prothrombin Time 10.9 9.3-11.8 sec Prothrombin Time INR 1.03 0.9-1.15 Activated Partial Thromboplast Time 27.1 24.5-34.5 SEC Test 01/07/24 18:23 01/07/24 16:42 01/07/24 15:32 Range/Units Urine Color Light-yellow Yellow Urine Clarity Turbid H Clear Urine pH 6.0 5.0-9.0 Urine Specific [place] 1.024 1.001-1.035 Urine Protein 2+ H Negative Urine Ketones 1+ H Negative Urine Blood Negative Negative /uL Urine Nitrite 2+ H Negative Urine Bilirubin Negative Negative Urine Urobilinogen Normal Negative mg/dL Urine Leukocyte Esterase Trace Negative /uL Urine RBC 2 0 - 4 /hpf Urine WBC 16 0 - 5 /hpf Urine Squamous Epithelial Cells Few <5 /hpf Urine Bacteria Few H None Seen /hpf Urine Glucose Normal Normal mg/dL Troponin I High Sensitivity 8525 *H </=34 ng/L Hemoglobin A1c 6.5 H <5.7 % A1C Magnesium Level 1.8 1.6-2.6 mg/dL B-Type Natriuretic Peptide 149.20 0-100 pg/mL Triglycerides Level 295 H < 150 mg/dL Cholesterol Level 160 < 200 mg/dL LDL Cholesterol 59 < 100 mg/dL HDL Cholesterol 67 H 40-59 mg/dL Thyroid Stimulating Hormone (TSH) 1.50 0.55-4.78 uIU/mL Microbiology Date/Time Source Procedure Growth Status 01/07/24 18:24 Urine - Lopez Port Urine Culture - Final Escherichia coli Complete Assessment/Plan Problem List: (1) UTI (lower urinary tract infection) (2) Diverticulitis of intestine (3) Internal thrombosed hemorrhoids (4) Rectal pain (5) ACS (acute coronary syndrome) (6) Chest pain Plan cleared from urology standpoint recommend removing and cleaning pessary monthly. Plan discussed with: Patient, Other ILSA SANTOS NP Jan 10, 2024 10:25
--- NOTE | 2024-01-10 13:32 | CONS ---
Pharmacy Clinical Information: From [facility] Heart Failure Fallout Report, Zofia Noyola is a 83 year old female with PMH of HTN and diverticulitis. Her inpatient medications for heart failure include metoprolol tartrate, empagliflozin, sacubitril/valsartan, and furosemide. Patient will be discharged on metoprolol succinate, empagliflozin, and ramipril. Consider holding off on the addition of an MRA due to hypotensive episodes. SUDHA CUMMINGS PHARMACIST Jan 10, 2024 13:32
[2024-01-10] MEDS ORDERED: NOREPINEPHRINE 8 MG/250ML KIT 250 ML IV ONE (20:57)
[2024-01-10] MEDS ORDERED: MIDAZOLAM DRIP 50 mg/50mL 50 ML IV ONE (20:57)
--- NOTE | 2024-01-10 21:23 | PRN ---
Misceleneous Note Note Note Declaration Summary: Patient Particulars: Ms. Noyola, a 83-year-old woman presented to the ER with generalized weakness, jaw pain, mild shortness of breath, headache, and chest discomfort radiating to her upper extremities. At the time of assessment, she was chest pain free. Multiple ECGs showed progressive ST segment changes in the anteroseptal leads and reciprocal changes in the lateral leads. Her initial troponin level was >3600 ng/L. Her medical history includes tobacco use (9.6 pack-years), osteoporosis, and a hysterectomy. She also has a family history of cardiovascular disease, including a brother who had a myocardial infarction. Preceding Event: Notified by the nurse that the patient was in asystole and unresponsive after she fell down on the floor coming back from bathroom. Code blue was called by the team. The detention attendant hospitalist team was bedside along with the code team. 25 minutes of BLS/ACLS protocol was conducted following the best practices, iv atropine and iv epinephrine was administered. AED was attached yet shockable rhythm was not found. Intubated with ambu bag respiration continued. The patient remained in asystole and hemodynamically did not respond. Detailed bedside examination revealed: -The patient was unresponsive to verbal or painful stimuli. -Spontaneous Heart and lung sounds are absent. -No spontaneous cardiac or respiratory activity noted over 5 minutes. -No corneal pupillary reflex present while checked twice. -Pupils are fixed and dilated over the examination period. Code timeout performed. The patient was pronounced clinically at 9:04 PM of date 01/10/2024 by Matt Davey MD, resident. Discussed with Dr. Siegel. Patient's family and patient's nurse were updated by the healthcare team. Appropriate and empathic condolences were provided to the patient's dear ones. The son was on the way while the code blue was ongoing the family is updated empathetically with support from the entire team. MATT DAVEY RESIDENT Jan 10, 2024 21:23
--- NOTE | 2024-01-10 21:23 | DVHNC2 ---
Intubation Indication: Respiratory Insufficiency, Airway Protection Prep: Preoxygenation Pretreated with: Nothing Medicated with: Nothing Intubation Approach: Orotracheal Informed consent obtained: No Risks/benefits/alt described: No UTO Consent Called for arturo sandra patient is unresponsive emergent intubation Date of Service: Jan 10, 2024 Billing Provider: GEORGE ORELLANA Common Visit Codes: PROCEDURE ONLY Procedure Codes: 80612-YZIAPOJQUO, 03470-HNDXFQC CODE BLUE GEORGE ORELLANA Jan 10, 2024 21:23
[2024-01-10] MEDS ORDERED: ATROPINE SULF 1 MG/10ml SYR IV ONE (22:26)
--- NOTE | 2024-01-11 03:24 | RESUS ---
CODE BLUE ASSESSSMENT History of Events History of Events: 83F presents to the ER ON 01/06 Pt reported going outside near her car and slide her back on the car down to the floor, and as the pt was trying to get up she immediately felt CP. Pt reported the CP to have been tight ache, which was substernal and radiated down the bilateral arms, and bilateral jaws. she currently does not have the chest pain. Pt also notes that she had SOB and CHAHAL during the CP. Pt PCP is Doctor Lanier. PMHx of HTN and Diverticulosis. SHx of Hysterectomy. Social Hx of Tobacco use, but denies alcohol and substance use. Pt was taken to woven label designer on the same day. Today pt was getting ready to go home, came to doorway asking to have iv removed, suddently stated "Rishi not feel good" and collapsed. pt was pulseless. Initial Information Date: Jan 10, 2024 Time: 20:45 [place]rest[place] Witnessed: Yes CPR started initial time: 20:45 CPR started by whom: Hospital Staff Pre-Hospital Care: ACLS Type of arrest: Cardiac, Respiratory, Adult, Witnessed Spontaneous Respirations: No Pulse Present: No Monitoring: ECG, Pulse Oximetry, Apnea, Telemetry Crash Cart Opened and Supplies: Yes Airway Ventilation Breathing at Onset: Apneic O2 Sat by Pulse Oximetry: 0 Oxygen Delivery Method: Ambu-Bag Oxygen 100% Time of first Assisted Ventila: 20:48 Artificial Ventilation: Bag/Endo tube Intubation Size: 8.0 cuffed Intubated by: méndez Intubation Attempts: 1 Intubated orally: Yes Intubated Nasaly: No Tube secured at: 24 Cricoid pressure done: No CO2 indicator used: Yes Confirmation: Auscultation, Exhaled CO2 Suctioning (Oral/Tracheal): No Circulation Circulation : Time: 20:45 Pulse Rate (adult): 0 Blood Pressure Systolic: 0 Blood Pressure Diastolic: 0 Temperature (Fahrenheit): 98.2 Procedure - IV Procedure - IV #1: IV Side: Right IV Location: Antecubital IV Placed by previously placed IV Gauge: 20 IV Line Care: Saline Flush Procedure - IV #2: IV Side: Left IV Location: Hand IV Placed: In Hospital IV Placed by previously placed IV Gauge: 22 IV Line Care: Saline Flush Medications & Response Medications and Responses #1: Medication Time: 20:48 ADULT Medications Given ADULT: Epinephrine 1 mg, Sodium Bacarbinate 50 meq Route of Administration: IV Heart Rate: 0 EKG Rhythm: PEA Blood Pressure Systolic: 0 Blood Pressure Diastolic: 0 Respiratory Rate: 0 O2 Sat by Pulse Oximetry: 0 EKG Rhythm: PEA Comment 2050 no pulse Medications and Responses #2: Medication Time: 20:51 ADULT Medications Given ADULT: Epinephrine 1 mg, Atropine 1 mg, Calcium Chloride 10 mL Route of Administration: IV Heart Rate: 0 EKG Rhythm: PEA Blood Pressure Systolic: 0 Blood Pressure Diastolic: 0 Respiratory Rate: 0 O2 Sat by Pulse Oximetry: 0 EKG Rhythm: PEA Comment 2053 no pulse Medications and Responses #3: Medication Time: 20:54 ADULT Medications Given ADULT: Epinephrine 1 mg Route of Administration: IV Heart Rate: 0 EKG Rhythm: PEA Blood Pressure Systolic: 0 Blood Pressure Diastolic: 0 Respiratory Rate: 0 O2 Sat by Pulse Oximetry: 0 EKG Rhythm: PEA Comment 2054 ROSC, HR 56 NO BP OBTAINABLE. 2058 PT PULSELESS Medications and Responses #4: Medication Time: 20:59 ADULT Medications Given ADULT: Epinephrine 1 mg Route of Administration: IV Heart Rate: 0 EKG Rhythm: PEA Blood Pressure Systolic: 0 Blood Pressure Diastolic: 0 Respiratory Rate: 0 O2 Sat by Pulse Oximetry: 0 EKG Rhythm: Agonal Comment 2100 NO PULSE Medications and Responses #5: Medication Time: 21: ADULT Medications Given ADULT: Epinephrine 1 mg Route of Administration: IV Heart Rate: 0 EKG Rhythm: Asystole Blood Pressure Systolic: 0 Blood Pressure Diastolic: 0 Respiratory Rate: 0 O2 Sat by Pulse Oximetry: 0 EKG Rhythm: Asystole Comment PULSE CHECK 2103 NO PULSE ASYSTOLE ON MONITOR PT PRONOUNCED. Nurses Notes [place] Coma Scale Eye Opening: None (1) [place] Coma Scale Verbal: None (1) [place] Coma Scale Motor: None (1) [place]ow Total: 3 Pupil Reaction: Non Reactive Bedside Blood Glucose: 115 EKG Rhythm: Asystole Time Code Ended Time Code Ended: 21:04 Post Arrest Status: Outcome of code: Unsuccessful Time patient pronounced: 21:04 Family notified: Yes Attending called: Yes Code Team Present: REYNA SPORTS MEDICINE COORDINATOR, TAMICA THACKER, GENA ALVARENGA HS, SHOSHANA COP BREAKER ICU, MARCELA CHARGE, JEANETTE PRIMARY, SHOLA RN, TIMI RN, TRE RT, RYAN RT. Post Resuscitation Neurologica Pupil Size: 4 Comment: GENA SCOTT Jan 11, 2024 03:24
--- NOTE | 2024-01-11 10:05 | DVHDS2 ---
Summary Date of Admission Jan 07, 2024 at 19:35 Date and Time of Expiration: Jan 10, 2024 21:04 Reason for Admission: Chest pain Labs/Diagnostic Data: Laboratory Results Test 01/10/24 20:52 01/10/24 04:45 01/09/24 07:16 01/08/24 06:06 POC Glucose 115 mg/dl (70-106) Sodium Level 139 mmol/L (136-145) Potassium Level 4.6 mmol/L (3.5-5.1) Chloride Level 104 mmol/L (98-107) Carbon Dioxide Level 26 mmol/L (20-31) Anion Gap 9 (5-15) Blood Urea Nitrogen 31 mg/dL (9-23) Creatinine 1.04 mg/dL (0.550-1.02) Glomerular Filtration Rate Calc 53 mL/min (>90) BUN/Creatinine Ratio 29.8 (10.0-20.0) Serum Glucose 122 mg/dL (74-106) Calcium Level 9.5 mg/dL (8.7-10.4) Total Bilirubin 0.3 mg/dL (0.2-1.0) Aspartate Amino Transferase (AST) 35 U/L (13-40) Alanine Aminotransferase (ALT) 13 U/L (7-40) Alkaline Phosphatase 58 U/L (46-116) Total Protein 6.2 g/dL (5.7-8.2) Albumin 3.9 g/dL (3.2-4.8) White Blood Count 11.9 10^3/uL (4.4-10.8) Red Blood Count 4.69 10^6/uL (4.0-5.20) Hemoglobin 13.9 g/dL (12.2-16.2) Hematocrit 42.4 % (36.0-46.0) Mean Corpuscular Volume 90.3 fL (80.0-100.0) Mean Corpuscular Hemoglobin 29.7 pg (28.0-32.0) Mean Corpuscular Hemoglobin Concent 32.8 g/dL (32.0-36.0) Red Cell Distribution Width 13.8 % (11.8-14.3) Platelet Count 196 10^3/uL (140-450) Mean Platelet Volume 8.6 fL (6.9-10.8) Neutrophils (%) (Auto) 81.3 % (37.0-80.0) Lymphocytes (%) (Auto) 12.4 % (10.0-50.0) Monocytes (%) (Auto) 5.9 % (0.0-12.0) Eosinophils (%) (Auto) 0.1 % (0.0-7.0) Basophils (%) (Auto) 0.3 % (0.0-2.0) Neutrophils # (Auto) 9.7 10 ^3/uL (1.6-8.6) Lymphocytes # (Auto) 1.5 10 ^3/uL (0.4-5.4) Monocytes # (Auto) 0.7 10 ^3/uL (0-1.3) Eosinophils # (Auto) 0 10 ^3/uL (0-0.8) Basophils # (Auto) 0 10 ^3/uL (0-0.2) Nucleated Red Blood Cells 0.0 % Test 01/08/24 00:24 01/07/24 18:23 01/07/24 16:42 01/07/24 15:32 Prothrombin Time 10.9 sec (9.3-11.8) Prothrombin Time INR 1.03 (0.9-1.15) Activated Partial Thromboplast Time 27.1 SEC (24.5-34.5) Urine Color Light-yellow (Yellow) Urine Clarity Turbid (Clear) Urine pH 6.0 (5.0-9.0) Urine Specific [place] 1.024 (1.001-1.035) Urine Protein 2+ (Negative) Urine Ketones 1+ (Negative) Urine Blood Negative /uL (Negative) Urine Nitrite 2+ (Negative) Urine Bilirubin Negative (Negative) Urine Urobilinogen Normal mg/dL (Negative) Urine Leukocyte Esterase Trace /uL (Negative) Urine RBC 2 /hpf (0 - 4) Urine WBC 16 /hpf (0 - 5) Urine Squamous Epithelial Cells Few /hpf (<5) Urine Bacteria Few /hpf (None Seen) Urine Glucose Normal mg/dL (Normal) Troponin I High Sensitivity 8525 ng/L (</=34) Hemoglobin A1c 6.5 % A1C (<5.7) Magnesium Level 1.8 mg/dL (1.6-2.6) B-Type Natriuretic Peptide 149.20 pg/mL (0-100) Triglycerides Level 295 mg/dL (< 150) Cholesterol Level 160 mg/dL (< 200) LDL Cholesterol 59 mg/dL (< 100) HDL Cholesterol 67 mg/dL (40-59) Thyroid Stimulating Hormone (TSH) 1.50 uIU/mL (0.55-4.78) Other Laboratory Tests 01/10/24 04:45 01/08/24 06:06 Brief Hx & Hospital Course: 83F presents to the ER w/ no prior Hx associated to the c/c of CP. Pt reports on going outside near her car and slide her back on the car down to the floor, and as the pt was trying to get up she immediately felt CP. Pt reported the CP to have been tight ache, which was substernal and radiated down the bilateral arms, and bilateral jaws. she currently does not have the chest pain. Pt also notes that she had SOB and CHAHAL during the CP. Pt PCP is Doctor Lanier. PMHx of HTN and Diverticulosis. SHx of Hysterectomy. Social Hx of Tobacco use, but denies alcohol and substance use. Denies chills, fever, N/V/D, or other associated symptom's, modifiers, or recent injuries or sick contact at this time. She is evaluated in the ER and noted to have a significantly elevated troponins and with history of chest pain she was taken immediately to the forestry farm laborer by disk and tape machine tender. Apparently patient noted to have clean coronaries. However her ejection fraction noted to be low at 20% with cardiomyopathy felt possibly secondary to takotsubo/broken heart syndrome from underlying stress or other etiology per disk and tape machine tender. Patient is subsequently admitted to the telemetry floor where she remained stable without any complaints of chest pain or shortness for breath or other symptoms. Able to get her self out of bed to bedside commode and to the bathroom. Physical therapy is also seen and evaluated her. Patient felt stable to be discharged home therefore I have put in a discharge on 01/09/2024. However home health is not arranged therefore she did not get discharged. Yesterday evening she was being discharged to home. Apparently per nurse Tate who is taking care of her, she ambulated to the door way and stated she did not feel good and collapsed and no pulses were felt per nurse and arturo flores was called. Resuscitative measures were undertaken and were unsuccessful. Therefore she was pronounced by the resuscitative team. I have spoken to the nurses taking care of her last night after I found out from on-call nurse practitioner that patient . Coronary was notified and felt this is not a interactive media director's case and body was released to the [facility]. I spoke to patient's son Lyndon Noyola (carl) this morning at [phone] number and updated him regarding patient's hospital course/condition/diagnosis. This morning I also notified Dr. Garcia her disk and tape machine tender regarding patient passing away last night. I have also recommended patient's son Lyndon to consider autopsy if he chooses given sudden nature of her . However he feels patient probably from her heart problems and comfortable with not doing an autopsy and grateful for care she received in the hospital. 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
== END 2024-01-10 21:04 ==
LOC: ER 15:19 → TELE 19:35 → TELE-EAST 21:52
PROVIDERS: ATTEND Hospitalist
PROC: 4A023N7 Measurement of Cardiac Sampling and Pressure, Left Heart, Percutaneous Approach (ICD-10-PCS; principal; 2024-01-07)
PROC: B211YZZ Fluoroscopy of Multiple Coronary Arteries using Other Contrast (ICD-10-PCS; 2024-01-07)
PROC: 0BH17EZ Insertion of Endotracheal Airway into Trachea, Via Natural or Artificial Opening (ICD-10-PCS; 2024-01-10)
PROC: 5A12012 Performance of Cardiac Output, Single, Manual (ICD-10-PCS; 2024-01-10)
DX: I21.4 Non-ST elevation (NSTEMI) myocardial infarction (principal); I50.21 Acute systolic (congestive) heart failure; N39.0 Urinary tract infection, site not specified; K57.32 Diverticulitis of large intestine without perforation or abscess without bleeding; I13.0 Hypertensive heart and chronic kidney disease with heart failure and stage 1 through stage 4 chronic kidney disease, or unspecified chronic kidney disease; I42.9 Cardiomyopathy, unspecified; E66.9 Obesity, unspecified; N18.9 Chronic kidney disease, unspecified; J44.9 Chronic obstructive pulmonary disease, unspecified; K64.5 Perianal venous thrombosis; F17.210 Nicotine dependence, cigarettes, uncomplicated; M81.0 Age-related osteoporosis without current pathological fracture; I25.10 Atherosclerotic heart disease of native coronary artery without angina pectoris; Z68.31 Body mass index [BMI] 31.0-31.9, adult; Z79.84 Long term (current) use of oral hypoglycemic drugs; Z79.899 Other long term (current) drug therapy; Z90.710 Acquired absence of both cervix and uterus; Z82.49 Family history of ischemic heart disease and other diseases of the circulatory system; I46.9 Cardiac arrest, cause unspecified
CPT/HCPCS: 36415; 70450; 71046; 80048; 80053; 80061; 81001; 82962; 83036; 83735; 83880; 84443; 84484; 85025; 85610; 85730; 87086; 87088; 87186; 92950; 93005; 93306; 93458; 97110; 97116; 97163; 97530; 99152; 99291; G0378; J2250; J2405; Q9967